=== PATIENT | female | born 1990 | race African-American/Black ===

== ENCOUNTER 2016-08-30 10:23 | Emergency (ER) | payer OTHER ==
[~2016-08-30] VITALS: Ht 157.5 cm; Wt 77.1 kg
[2016-08-30] MEDS ORDERED: NOHOMEMEDICATIONS (10:27)
[2016-08-30 10:40] LABS: URINE BILIRUBIN NEGATIVE (Negative); URINE BLOOD 3+ (Negative); URINE COLOR YELLOW; URINE GLUCOSE-RANDOM* NEGATIVE (Negative); URINE KETONES NEGATIVE (Negative); URINE LEUKOCYTES-REFLEX 2+ (Negative); URINE PROTEIN (DIPSTICK) NEGATIVE (Negative); URINE UROBILINOGEN 0.2 E.U./dl (0.2-1.0)
[2016-08-30 10:47] LABS: CASTS None Seen /LPF (None Seen); SQUAMOUS 4-10 Moderate /LPF (0-3); URINE RBC 3-10 Few /HPF (0-2)
[2016-08-30 10:48] LABS: AMORPHOUS URATES Few /LPF (None Seen)
[2016-08-30] MEDS ORDERED: MACROBID 100 M100 M1 PO (11:15)
[2016-08-30 11:43] VITALS: BP 138/72
[2016-08-31 14:12] LABS: CHLAMYDIA TRACHOMATIS-PCR Negative (Negative); NEISSERIA GONORRHEA-PCR Negative (Negative)
== END 2016-08-30 11:44 | disposition home or self-care (01) ==
LOC: ER 10:23
PROVIDERS: Physician Assistant
DX: N72 Inflammatory disease of cervix uteri (principal); N39.0 Urinary tract infection, site not specified

== ENCOUNTER 2018-12-11 13:06 | Emergency (ER) | payer OTHER ==
[~2018-12-11] VITALS: Ht 157.5 cm; Wt 68.0 kg
[~2018-12-11 13:06] MED LIST: MACROBID 100 M100 M1 PO; NOHOMEMEDICATIONS
[2018-12-11] MEDS ORDERED: NAPROSYN500 MG PO (14:20)
[2018-12-11] MEDS ORDERED: NORFLEX100 MG PO (14:20)
[2018-12-11 14:32] VITALS: BP 137/91
== END 2018-12-11 14:33 | disposition home or self-care (01) ==
LOC: ER 13:06
DX: S29.012A Strain of muscle and tendon of back wall of thorax, initial encounter (principal); S46.812A Strain of other muscles, fascia and tendons at shoulder and upper arm level, left arm, initial encounter; S50.11XA Contusion of right forearm, initial encounter; F17.210 Nicotine dependence, cigarettes, uncomplicated; W22.8XXA Striking against or struck by other objects, initial encounter; Y93.89 Activity, other specified; Y92.89 Other specified places as the place of occurrence of the external cause; Y99.8 Other external cause status

== ENCOUNTER 2020-01-15 21:06 | Emergency (ER) | payer OTHER ==
[~2020-01-15] VITALS: Ht 157.5 cm; Wt 68.0 kg
[~2020-01-15 21:06] MED LIST changes: +NAPROSYN500 MG PO; +NORFLEX100 MG PO
[2020-01-15 22:56] VITALS: BP 130/67
== END 2020-01-15 22:59 | disposition left against medical advice (07) ==
LOC: ER 21:06
DX: T19.2XXA Foreign body in vulva and vagina, initial encounter (principal); Z53.21 Procedure and treatment not carried out due to patient leaving prior to being seen by health care provider; Y92.89 Other specified places as the place of occurrence of the external cause